=== PATIENT | female | born 1975 | race American Indian/Alaskan Native ===

== ENCOUNTER 2022-03-11 06:18 | Day surgery (SDC) | payer OTHER ==
[2022-03-08 13:54] LABS: Basophils # (Auto) 0.1 K/mm3 (0.0-0.1); Basophils % (Auto) 1.3 % (0.0-1.8); Eosinophils # (Auto) 0.1 K/mm3 (0.0-0.4); Eosinophils % (Auto) 1.9 % (0.0-4.3); Hematocrit 40.1 % (30.3-42.9); Hemoglobin 12.7 gm/dl (10.1-14.3); Lymphocytes # (Auto) 1.8 K/mm3 (1.2-5.4); Lymphocytes % (Auto) 39.2 % (13.4-35.0); Mean Corpuscular HGB Conc 32 % (30-34); Mean Corpuscular Volume 89 fl (79-97); Monocytes # (Auto) 0.3 K/mm3 (0.0-0.8); Monocytes % (Auto) 7.6 % (0.0-7.3); Platelet Count 262 K/mm3 (140-440); Red Blood Count 4.53 M/mm3 (3.65-5.03); Red Cell Distribution Width 13.2 % (13.2-15.2)
[2022-03-08 14:06] LABS: BUN/Creatinine Ratio 18; Blood Urea Nitrogen 7 mg/dL (7-17); Calcium 9.2 mg/dL (8.4-10.2); Hemolysis Index 4
--- NOTE | 2022-03-10 09:57 | History and Physical Report ---
History of Present Illness Date of examination: 03/03/22 Date of admission: 03/11/22 Chief complaint: heavy vaginal bleeding History of present illness: Pt reports still having heavy bleeding and passing clots. Pt underwent SIS that showed endometrial mass as well as an endometrial bx. The endometrial bx did show normal endometrial tissue. I d/w pt at the time that due to the limitations of the blind bx that the removal of the mass is needed and that the bx may not reflect what is the consistentcy of the mass. Pt does have a 3cm fibroid that will not be removed today. All risk benfits and alternatives d/w pt and questions were addressed and answered. Consent signed and placed on the chart. Past History : 4 Term Births: 3 Living Children: 3 Para: 3 Elect. Ab: 1 MINE TECHNICIAN History Uterine Surgery (not C/S): positive Operations: positive D&C: Hospitalizations: negative Anesthesia Complications: negative Abnormal PAP: negative Uterine Anomaly: negative JAZMÍN Exposure: negative Infertility: negative Infection History HIV Risk Eval: no Personal hx. of genital herpes: yes Hx of STD: HSV Active Medications (reviewed today): metronidazole 500 mg tablet (metronidazole) Take 1 tablet by mouth twice a day MULTI VITAMINS () Current Allergies (reviewed today): No known allergies Past Medical History: Negative Past Medical History Past Surgical History: positive D&C: Past History Past Medical History: no pertinent history Past Surgical History: no surgical history MINE TECHNICIAN History: other (see hpi) Family/Genetic History: other (see hpi) Social history: no significant social history Medications and Allergies Allergies Allergy/AdvReac Type Severity Reaction Status Date / Time No Known Allergies Allergy Unverified 03/07/22 10:15 Home Medications Medication Instructions Recorded Confirmed Last Taken Type Ferrous Sulfate [Iron 325 MG] 325 mg PO DAILY 03/07/22 03/07/22 Unknown History metroNIDAZOLE [Flagyl] 500 mg PO Q12HR 03/07/22 03/07/22 Unknown History - Vital Signs Vital signs: Vital Signs Temp Pulse Resp BP Pulse Ox 98.6 F 93 H 18 122/77 99 03/08/22 13:20 03/08/22 13:20 03/08/22 13:20 03/08/22 13:20 03/08/22 13:20 Temp Pulse Resp BP Pulse Ox 98.6 F 93 H 18 122/77 99 03/08/22 13:20 03/08/22 13:20 03/08/22 13:20 03/08/22 13:20 03/08/22 13:20 - Physical Exam Cardiovascular: Normal S1, Normal S2 Lungs: Positive: Clear to auscultation, Normal air movement Abdomen: Positive: normal appearance, soft. Negative: distention, tenderness, guarding Genitourinary (Female): Positive: other (deferred until EUA) Extremities: Positive: normal. Negative: tenderness, edema Results Result Diagrams: 03/08/22 13:10 03/08/22 13:10 All other labs normal. Assessment and Plan - Patient Problems (1) Menorrhagia Status: Acute (2) Endometrial mass Status: Acute Plan to address problem: -admit for myosure removal of mass and novausre alblation -consents signed and placed on the chart.
[~2022-03-11 06:18] MED LIST: LACTATED RINGERS 1,000 ML ONE; ceFAZolin/Water 2 GM/20 ML 2 GM/20 ML SYRINGE IV SCH
[2022-03-11] MEDS ORDERED: LACTATED RINGERS 1,000 ML IV SCH (07:00)
[2022-03-11] MEDS ORDERED: MIDAZOLAM 2 MG/2 ML INJ IV NR (07:11)
--- NOTE | 2022-03-11 07:11 | Anesthesia Day of Surgery ---
Anesthesia Day of Surgery - Day of Surgery Patient Examined: Yes Patient H&P Reviewed: Yes Patient is NPO: Yes
--- NOTE | 2022-03-11 07:11 | Anesthesia Consultation ---
Anesthesia Consult and Med Hx Date of service: 03/11/22 - Airway Anesthetic Teeth Evaluation: Good ROM Head & Neck: Adequate Mental/Hyoid Distance: Adequate Mallampati Class: Class II Intubation Access Assessment: Good - Pulmonary Exam CTA: Yes - Cardiac Exam Cardiac Exam: RRR - Pre-Operative Health Status ASA Pre-Surgery Classification: ASA1 Proposed Anesthetic Plan: General - Central Nervous System Hx Psychiatric Problems: No - Hematic Hx Anemia: Yes - Other Systems Hx Cancer: No
[2022-03-11] MEDS ORDERED: MIDAZOLAM 2 MG/2 ML INJ ONE (07:28)
[2022-03-11] MEDS ORDERED: fentaNYL 100 MCG/2 ML INJ ONE (07:28)
[2022-03-11] MEDS ORDERED: LIDOCAINE MPF (2%) 20 MG/1 ML VIAL 5 ML ONE (07:28)
[2022-03-11] MEDS ORDERED: propofoL 200 MG/20 ML VIAL IV ONE (07:29)
[2022-03-11] MEDS ORDERED: HYDROmorphone 1 MG/1 ML INJ IV PRN ×2 (07:59)
[2022-03-11] MEDS ORDERED: ONDANSETRON 4 MG/2 ML INJ IV PRN (07:59)
[2022-03-11] MEDS ORDERED: KETOROLAC 30 MG/1 ML INJ ONE (08:19)
[2022-03-11] MEDS ORDERED: ONDANSETRON 4 MG/2 ML INJ ONE (08:19)
[2022-03-11] MEDS ORDERED: dexAMETHasone 20 MG/5 ML VIAL ONE (08:19)
[2022-03-11] MEDS ORDERED: SODIUM CHLORIDE 0.9% IRR 1,500 ML BOTTLE IR ONE (08:35)
[2022-03-11] MEDS ORDERED: SODIUM CHLORIDE 0.9% IRRIG SOLN 2000 ML IR ONE (08:35)
--- NOTE | 2022-03-11 09:03 | Operative Report ---
Operative Report Operative Report: Date of procedure: 03/11/2022 Pre-operative diagnosis: Menorrhagia, endometrial mass Post-operative diagnosis: Same Procedure name(s): 1. Hysteroscopy 2. NovaSure ablation Surgeon: Ne Hillman M.D. Retail Pricing Coordinator: YADIRA Anesthesia: General endotracheal anesthesia EBL: Minimal Urine output: Approximately 100 mL of clear urine out via straight catheterization prior to the onset of the procedure Fluids: 500 mL Fluid deficit: 200 mL Findings: Thickened endometrium noted on hysteroscopy with 1 area that appeared to be a small endometrial polyp. [place] seen bilaterally. Indications: Patient with history of endometrial mass and heavy menstrual bleeding not responsive to medical therapy. Patient desired removal. And treatment of the endometrial lining. All risk benefits and alternatives were discussed with the patient. Consents were signed and placed on the chart. Procedure: Patient was taken to the operating room where she was placed under general endotracheal anesthesia she was then prepped and draped in normal sterile fashion in dorsal lithotomy position with legs in Adalberto stirrups. S traight catheterization of the bladder was performed at this time. Sterile speculum was placed inside of the vagina to visualize the entire cervix. The anterior lip of the cervix was grasped with a single-tooth tenaculum and the uterus was sounded to 12 cm. The cervix was then dilated in order to allow passage of the hysteroscope. Hysteroscopy yielded the above-stated findings. The cervical length was noted to be 5 cm. The uterine cavity length was calculated to be 6 cm. The cervix was then dilated more to allow passage of the NovaSure device. With placement of the NovaSure device the cavity width was noted to be 4.9 cm. The integrity of the seal was then tested. The device did pass the testing. The power that was used for the NovaSure ablation was 162. The amount of time of the ablation was 1:01mins. Hysteroscopy following the ablation noted that there was adequate cauterization of the uterine cavity. All instruments were removed from the vagina and the cervix. Patient tolerated the procedure well. All counts were correct.
--- NOTE | 2022-03-11 09:07 | Short Stay Summary ---
Short Stay Documentation Date of service: 03/11/22 - History H&P: dictated Social history: no significant social history - Allergies and Medications Current Medications: Allergies No Known Allergies Allergy (Unverified 03/07/22 10:15) Home Medications Medication Instructions Recorded Confirmed Last Taken Type Ferrous Sulfate [Iron 325 MG] 325 mg PO DAILY 03/07/22 03/11/22 03/10/22 09:00 History Active Medications Hydromorphone HCl (Hydromorphone 1 Mg/1 Ml Inj) 0.25 mg IV Q10MIN PRN PRN Reason: Pain, Moderate (4-6) Stop: 03/11/22 20:00 Hydromorphone HCl (Hydromorphone 1 Mg/1 Ml Inj) 0.5 mg IV Q10MIN PRN PRN Reason: Pain , Severe (7-10) Stop: 03/11/22 20:00 Cefazolin Sodium (Ancef/Sterile Water 2 Gm/20 Ml) 2 gm in 20 mls @ 40 mls/hr IV PREOP SHYAM; Protocol Lactated Ringer's (Lactated Ringers) 1,000 mls @ 75 mls/hr IV DIRECT SHYAM - Brief post op/procedure progress note Date of procedure: 03/11/22 Pre-op diagnosis: menorrhagia; endometrial mass Post-op diagnosis: same Procedure: hysteroscopy myosure novasure ablation Anesthesia: GETA Findings: Thickened endometrium. What appeared to be a small polyp on the right lateral sidewall of the uterus. Surgeon: VIAT SEXTON Estimated blood loss: none Pathology: list Specimen disposition: to lab Condition: stable (Uterine contents) - Hospital course Hospital course: Patient admitted for above-stated procedure. Patient will undergo recovery in the PACU. Patient was discharged home once recovery is completed in PACU. - Disposition Condition at discharge: Good Disposition: 01 HOME / SELF CARE / HOMELESS - Discharge Diagnoses (1) Menorrhagia Status: Acute (2) Endometrial mass Status: Acute Short Stay Discharge Plan Activity: no restrictions Weight Bearing Status: Weight Bear as Tolerated Diet: regular Additional Instructions: KEEP FOLLOW UP APPOINTMENT TAKE MEDS PRESCRIBED YOU MAY RESUME YOUR REGULAR DIET -- AVOID SPICY OR GREASY FOODS FOR FIRST MEAL DO NOT DRIVE, OPERATE HEAVY EQUIPMENT OR SIGN LEGAL DOCUMENTS X 24 HRS Follow up with: KIKI KATZ MD [Primary Care Provider] - 7 Days VITA SEXTON MD [Staff Physician] - 7 Days Forms: Outpatient Surgery DC Inst. Prescriptions: Ibuprofen [Motrin 800 MG tab] 800 mg PO Q8HR PRN #30 tablet PRN Reason: Pain, Moderate (4-6) oxyCODONE /ACETAMINOPHEN [Percocet 5/325] 1 tab PO Q4HR #10 tab
[2022-03-11 12:27] VITALS: BP 138/63
--- NOTE | 2022-03-11 14:54 | Post Anesthesia Evaluation ---
- Post Anesthesia Evaluation Patient Participated: Yes Airway Patent: Yes Stable Respiratory Function: Yes Nausea/Vomiting: No Temp > 96.8F: Yes Pain Manageable: Yes Adequeate Hydration: Yes Anesthesia Complications: No Block Receding Appropriately: Not Applicable Patient on Ventilator: No
== END 2022-03-11 06:19 | disposition home or self-care (01) ==
LOC: OR 06:18
PROVIDERS: ATTEND Obstetrics & Gynecology
DX: N92.0 Excessive and frequent menstruation with regular cycle (principal); N94.89 Other specified conditions associated with female genital organs and menstrual cycle; D64.9 Anemia, unspecified; N84.0 Polyp of corpus uteri; Z20.822 Contact with and (suspected) exposure to COVID-19; Z79.899 Other long term (current) drug therapy; Z98.890 Other specified postprocedural states
CPT/HCPCS: 36415; 58563; 80048; 84703; 85025; 88305; C1782; J0690; J1100; J1885; J2250; J2405; J2704; J3010; J7120; U0003